=== PATIENT | male | born 1985 | race Caucasian/White ===

== ENCOUNTER 2022-12-22 20:50 | Emergency (ER) | payer SELFPAY ==
[2022-12-22 20:50] VITALS: BP 119/87; PULSE 75; RESP 15; TEMP 36; O2SAT 100; BMI 24.5
--- NOTE | 2022-12-22 21:56 | EDS_ITS ---
HPI History of Present Illness Chief Complaint: Laceration Narrative Narrative: Patient presents with right arm laceration at work. Tetanus is not up-to-date he has no other complaint. PFSH PFSH Medical History no medical history Home Medications NK 12/22/22 [History Last Taken Unknown] Allergy/AdvReac Type Severity Reaction Status Date / Time No Known Allergies Allergy Verified 12/22/22 20:53 Surgical History no surgical history Social History Smoking Status: Current every day smoker tobacco type: cigarettes ROS ROS ED ROS Narrative Past medical history: none Medications: Reviewed Social history: Noncontributory Review of systems: Musculoskeletal: Laceration as in HPI Skin: Laceration as in HPI Neurological: No weakness or paresthesias Hematologic: No easy bleeding or easy bruising EXAM Physical Exam Narrative Exam Narrative: Physical exam General: Patient does not appear in significant distress . Head: Normocephalic, Atraumatic Cardiovascular: Normal distal pulses Extremities: There is a 5 cm dorsum of the right arm laceration it is linear without any tendon compromise Skin: No abrasions, no lacerations Neurological: Normal strength and sensation Const Vital Signs: 12/22/22 20:50 Temperature 96.8 F L Temperature Source Temporal Pulse Rate 75 Respiratory Rate 15 Blood Pressure 119/87 H Blood Pressure Mean 97 Pulse Ox 100 Oxygen Delivery Method Room Air PROC Procedures Lacerations Laceration: Length: 1.97 in Depth: Skin Shape: Linear Prep: Shure-Clens Laceration repair: Local (Lidocaine) and Skin sutures Number of Sutures/[place]: 5 Suture Information: Ethilon, Simple and 4-0 [facility] Treatment and Re-Evaluation Narrative: Tetanus will be updated. Wound was sutured. Patient tolerated procedure well he will be discharged with wound care instructions. Discharge Plan Triage Chief Complaint: Laceration ED Provider: Ayan Nguyen Dx/Rx/DC Orders Clinical Impression: Laceration, Visit for wound check Instructions: ED Laceration Extremity Prescriptions: No Action NK Referrals: [facility] - 10 Day for suture removal Disposition Disposition: Home, Self Care
[2022-12-22] MEDS: Diphth,Pertuss(Acell),Tet Vac 0.5 ML Vial IM (22:08)
[2022-12-22 22:13] VITALS: BP 108/97; PULSE 62; RESP 15; O2SAT 97
== END 2022-12-22 22:13 | disposition home or self-care (01) ==
LOC: ED 22:02
PROVIDERS: Emergency Provider Emergency Medicine; Visit Provider Emergency Medicine
DX: S41.111A Laceration without foreign body of right upper arm, initial encounter (principal); Z51.89 Encounter for other specified aftercare; F17.210 Nicotine dependence, cigarettes, uncomplicated; X58.XXXA Exposure to other specified factors, initial encounter; Y99.0 Civilian activity done for income or pay; Y92.89 Other specified places as the place of occurrence of the external cause; Z23 Encounter for immunization
CPT/HCPCS: 12001; 90471; 96372; 99282